=== PATIENT | male | born 1965 | race Caucasian/White ===

== ENCOUNTER 2021-06-19 14:44 | Inpatient (IN) ==
--- NOTE | 2021-06-19 18:01 | Emergency Department Note ---
History of Present Illness General Chief Complaint: Wound Stated Complaint: WOUND ON SECOND RIGHT TOE Time Seen by Provider: 06/19/21 18:00 Source: patient Mode of arrival: ambulatory Limitations: no limitations History of Present Illness Onset (ago): month(s) (2) Extremity Location: Right: foot Associated symptoms: + pain Treatments prior to arrival: + NSAIDS Patient has had a chronic wound over the right second phalanx for approximately 2 months and has been going to wound care getting treatments. The patient has noticed increasing redness swelling and drainage over the dorsal aspect of the right second digit. The patient has had worsening pain with redness and swelling. The patient denies any fevers or chills but is a diabetic. Home Medications Medication Instructions Recorded Confirmed Type apixaban 5 mg tablet (Eliquis) 5 mg PO BID 06/19/21 06/19/21 History atorvastatin 80 mg tablet 80 mg PO HS 06/19/21 06/19/21 History clindamycin HCl 150 mg capsule 450 mg PO TID 7 Days #63 cap 06/19/21 Rx ferrous gluconate 324 mg (37.5 mg 324 mg PO DAILY 06/19/21 06/19/21 History iron) tablet insulin aspart U-100 100 unit/mL 0 unit SUBCUT TIDM 06/19/21 06/19/21 History (3 mL) subcutaneous pen (Novolog Flexpen U-100 Insulin aspart) insulin glargine 100 unit/mL (3 18 unit SUBCUT PM 06/19/21 06/19/21 History mL) subcutaneous pen levofloxacin 750 mg tablet 750 mg PO DAILY 7 Days #7 tab 06/19/21 Rx metformin 1,000 mg tablet 1,000 mg PO BID 06/19/21 06/19/21 History sertraline 50 mg tablet 50 mg PO DAILY 06/19/21 06/19/21 History sitagliptin 100 mg tablet (Januvia) 100 mg PO DAILY 06/19/21 06/19/21 History tramadol 50 mg tablet 50 mg PO Q8H PRN #9 tab 06/19/21 Rx Allergies Allergy/AdvReac Type Severity Reaction Status Date / Time kiwi Allergy Intermediate EYES SWELL Verified 06/19/21 18:40 SHUT OYSTERS Allergy Intermediate EYES SWELL Uncoded 06/19/21 18:40 SHUT Past Med/Surg History Medical History Abnormal liver function (Unknown) Diabetes MDD (major depressive disorder) Surgical History No pertinent past surgical history Social History Smoking Status: Never smoker Preferred Language: Faroese Feels Safe at Home: Yes Review of Systems See HPI for pertinent positives & negatives. and A total of 10 systems reviewed and were otherwise negative Physical Exam Vital Signs Vital Signs - 24 hr 06/19/21 15:04 06/19/21 18:04 06/19/21 18:30 Temperature 36.6 C Temperature Source Temporal Artery Scan Pulse Rate 105 H 89 89 Pulse Rate from SpO2 Sensor 89 89 Pulse Rhythm Regular Pulse Strength Normal Respiratory Rate 16 19 24 Respiratory Effort / Characteristics Non-Labored Respiratory Depth Normal Respiratory Pattern Regular Blood Pressure 131/73 120/80 128/72 Blood Pressure Mean 92 93 90 Blood Pressure Position Sitting Pulse Oximetry 98 100 100 Oxygen Delivery Method Room Air Sepsis Recent Fever Within 48 Hours No Sepsis New/Unexplained Change in Mental Status N/A Sepsis Action Taken by Nursing No Action Required 06/19/21 19:03 06/19/21 19:30 06/19/21 20:00 Temperature Temperature Source Pulse Rate 93 H 92 H 89 Pulse Rate from SpO2 Sensor 90 92 H Pulse Rhythm Pulse Strength Respiratory Rate 19 18 21 Respiratory Effort / Characteristics Respiratory Depth Respiratory Pattern Blood Pressure 144/85 H 132/91 Blood Pressure Mean 104 104 Blood Pressure Position Pulse Oximetry 100 99 Oxygen Delivery Method Sepsis Recent Fever Within 48 Hours Sepsis New/Unexplained Change in Mental Status Sepsis Action Taken by Nursing 06/19/21 20:30 06/19/21 21:00 06/19/21 21:30 Temperature Temperature Source Pulse Rate 86 84 83 Pulse Rate from SpO2 Sensor 87 83 84 Pulse Rhythm Pulse Strength Respiratory Rate 13 13 12 Respiratory Effort / Characteristics Respiratory Depth Respiratory Pattern Blood Pressure 137/82 133/80 142/88 H Blood Pressure Mean 100 97 106 Blood Pressure Position Pulse Oximetry 99 99 100 Oxygen Delivery Method Sepsis Recent Fever Within 48 Hours Sepsis New/Unexplained Change in Mental Status Sepsis Action Taken by Nursing 06/19/21 22:00 06/19/21 22:30 06/19/21 23:00 Temperature Temperature Source Pulse Rate 83 82 81 Pulse Rate from SpO2 Sensor 84 Pulse Rhythm Pulse Strength Respiratory Rate 19 20 19 Respiratory Effort / Characteristics Respiratory Depth Respiratory Pattern Blood Pressure 140/87 126/71 135/82 Blood Pressure Mean 104 89 99 Blood Pressure Position Pulse Oximetry 100 Oxygen Delivery Method Sepsis Recent Fever Within 48 Hours Sepsis New/Unexplained Change in Mental Status Sepsis Action Taken by Nursing 06/19/21 23:30 Temperature Temperature Source Pulse Rate 80 Pulse Rate from SpO2 Sensor 79 Pulse Rhythm Pulse Strength Respiratory Rate Respiratory Effort / Characteristics Respiratory Depth Respiratory Pattern Blood Pressure 127/81 Blood Pressure Mean 96 Blood Pressure Position Pulse Oximetry 98 Oxygen Delivery Method Sepsis Recent Fever Within 48 Hours Sepsis New/Unexplained Change in Mental Status Sepsis Action Taken by Nursing GENERAL: Well appearing, well nourished, NAD, non-toxic. Wearing glasses and a mask. EYE EXAM: Normal conjunctiva. PERRL, no anisocoria and EOM's grossly intact w/o pain. NECK: Supple, no nuchal rigidity, no adenopathy, non-tender. No signs of meningismus. LUNGS: Clear to auscultation. Normal chest wall mechanics. HEART: NSR, no MRG. ABDOMEN: Abdomen soft, non-tender, normo-active bowel sounds, no masses, no re bound or guarding. BACK: No CVA TTP. SKIN: No rashes and no bruising. UPPER EXTREMITIES: Upper extremities are grossly normal. LOWER EXTREMITIES: Grossly normal, no edema. Negative Homans' sign bilaterally. 1/2 x 1 cm wound with scant drainage over the dorsum of the distal right second digit just proximal to the nailbed, mild swelling and erythema noted without any crepitus, mild TTP. Good DP pulse. NEURO EXAM: A&O x3, cranial nerves II-XII grossly intact, normal speech, moves all 4 extremities on command w/o issue. Course Course Cardiac monitoring: An order was placed for continuous cardiac monitoring. The monitor shows a rate of 95 with sinus rhythm. Administered Medications Discontinued Medications Clindamycin HCl (Clindamycin Hcl 150 Mg Cap) 450 mg PO NOW ONE Stop: 06/19/21 19:25 Last Admin: 06/19/21 19:29 Dose: 450 mg Documented by: [id number] Hydromorphone HCl (Hydromorphone Inj 0.5 Mg/0.5 Ml Syr) 0.5 mg IV NOW STA Stop: 06/19/21 22:55 Last Admin: 06/19/21 23:36 Dose: Not Given Documented by: [id number] Hydromorphone HCl (Hydromorphone Inj 0.5 Mg/0.5 Ml Syr) Confirm Administered Dose 0.5 mg .ROUTE .STK-MED ONE Stop: 06/19/21 23:09 Last Admin: 06/19/21 23:11 Dose: 0.5 mg Documented by: [id number] Sodium Chloride (Nss 1000ml) 1,000 mls @ 999 mls/hr IV .Q1H1M VIPUL Stop: 06/19/21 19:30 Last Infusion: 06/19/21 19:41 Dose: 999 mls/hr Documented by: [id number] Admin: 06/19/21 18:33 Dose: 999 mls/hr Documented by: [id number] Insulin Human Regular (Novolin-R Insulin Per Unit Charge) 5 units IV NOW STA Stop: 06/19/21 23:21 Last Admin: 06/19/21 23:33 Dose: 5 units Documented by: [id number] Cosigned by: [id number] Levofloxacin (Levofloxacin 750 Mg Tab) 750 mg PO ONE ONE Stop: 06/19/21 19:25 Last Admin: 06/19/21 19:30 Dose: 750 mg Documented by: [id number] Ondansetron HCl (Ondansetron Inj 2 Mg/Ml 2 Ml Vial) 4 mg IV NOW STA Stop: 06/19/21 18:19 Last Admin: 06/19/21 18:33 Dose: 4 mg Documented by: [id number] Tramadol HCl (Tramadol Hcl 50 Mg Tablet) 50 mg PO NOW STA Stop: 06/19/21 18:19 Last Admin: 06/19/21 18:32 Dose: 50 mg Documented by: [id number] Medical Decision Making Differential Diagnosis Cellulitis, abscess, MRSA infection, DVT, necrotizing fasciitis, dermatitis, drug eruption, allergic reaction, as well as other pathologies. Medical Records Attestation: I reviewed the patient's medical records. Home Medications Current Medication List: was personally reviewed by me Laboratory Data Attestation: I reviewed the patient's lab results. Result diagrams: 06/19/21 18:01 06/19/21 18:01 Lab Results 06/19/21 06/19/21 06/19/21 Range/Units 18: 18: 20:30 WBC 9.37 (4.8-10.8) K/uL RBC 4.46 L (4.7-6.1) M/uL Hgb 11.1 L (14.0-18.0) g/dL Hct 34.5 L (42-52) % MCV 77.4 L (80-100) fL MCH 24.9 L (25-34) pg MCHC 32.2 (32-36) g/dL RDW Std Deviation 41.5 (36.4-46.3) fL RDW Coeff of Donna 14.5 (11.5-14.5) % Plt Count 259 (130-400) K/uL MPV 10.8 H (7.4-10.4) fL Immature Gran % (Auto) 0.2 % Neut % (Auto) 82.1 % Lymph % (Auto) 9.7 % Otero % (Auto) 6.2 % Eos % (Auto) 1.4 % Baso % (Auto) 0.4 % Neut # (Auto) 7.69 H (1.4-6.5) K/uL Lymph # (Auto) 0.91 L (1.2-3.4) K/uL Otero # (Auto) 0.58 (0.11-0.59) K/uL Eos # (Auto) 0.13 (0-0.5) K/uL Baso # (Auto) 0.04 (0-0.2) K/uL Immature Gran # (Auto) 0.02 (0.00-0.02) K/uL Sodium 127 L (136-145) mmol/L Potassium 4.0 (3.5-5.1) mmol/L Chloride 101 (98-107) mmol/L Carbon Dioxide 26 (21-32) mmol/L Anion Gap 0 L (3-11) BUN 17 (7-18) mg/dl Creatinine 1.01 (0.6-1.4) mg/dl Est Cr Clr Drug Dosing 83.2 ml/min Est GFR ( Amer) 95.9 ml/min Est GFR (Non-Af Amer) 82.8 ml/min BUN/Creatinine Ratio 16.5 (10-20) Glucose 389 H* (70-99) mg/dl POC Glucose (70-99) mg/dl Calcium 8.7 (8.5-10.1) mg/dl Total Bilirubin 0.5 (0.2-1) mg/dl AST 20 (15-37) U/L ALT 24 (12-78) U/L Alkaline Phosphatase 89 (45-117) U/L Total Protein 7.9 (6.4-8.2) gm/dl Albumin 3.4 (3.4-5.0) gm/dl Globulin 4.5 H (2.5-4.0) gm/dl Albumin/Globulin Ratio 0.8 L (0.9-2) Beta-Hydroxybutyric Acd 0.88 (0.2-2.81) mg/dl COVID-19 Eval Order Covid19 at [facility] SARS-CoV-2 (PCR) (Negative) 06/19/21 06/19/21 Range/Units 20:30 23:33 WBC (4.8-10.8) K/uL RBC (4.7-6.1) M/uL Hgb (14.0-18.0) g/dL Hct (42-52) % MCV (80-100) fL MCH (25-34) pg MCHC (32-36) g/dL RDW Std Deviation (36.4-46.3) fL RDW Coeff of Donna (11.5-14.5) % Plt Count (130-400) K/uL MPV (7.4-10.4) fL Immature Gran % (Auto) % Neut % (Auto) % Lymph % (Auto) % Otero % (Auto) % Eos % (Auto) % Baso % (Auto) % Neut # (Auto) (1.4-6.5) K/uL Lymph # (Auto) (1.2-3.4) K/uL Otero # (Auto) (0.11-0.59) K/uL Eos # (Auto) (0-0.5) K/uL Baso # (Auto) (0-0.2) K/uL Immature Gran # (Auto) (0.00-0.02) K/uL Sodium (136-145) mmol/L Potassium (3.5-5.1) mmol/L Chloride (98-107) mmol/L Carbon Dioxide (21-32) mmol/L Anion Gap (3-11) BUN (7-18) mg/dl Creatinine (0.6-1.4) mg/dl Est Cr Clr Drug Dosing ml/min Est GFR ( Amer) ml/min Est GFR (Non-Af Amer) ml/min BUN/Creatinine Ratio (10-20) Glucose (70-99) mg/dl POC Glucose 304 H* (70-99) mg/dl Calcium (8.5-10.1) mg/dl Total Bilirubin (0.2-1) mg/dl AST (15-37) U/L ALT (12-78) U/L Alkaline Phosphatase (45-117) U/L Total Protein (6.4-8.2) gm/dl Albumin (3.4-5.0) gm/dl Globulin (2.5-4.0) gm/dl Albumin/Globulin Ratio (0.9-2) Beta-Hydroxybutyric Acd (0.2-2.81) mg/dl COVID-19 Eval Order SARS-CoV-2 (PCR) NEGATIVE (Negative) Imaging Data Radiologist's Impression: Foot X-Ray 06/19/21 18:28 XR foot RT 2V CLINICAL HISTORY: R 2nd toe wound on dorsum COMPARISON STUDY: None. FINDINGS: Near complete bony destruction of the right second toe middle phalanx. There is diffuse soft tissue swelling within the right second toe. The Lisfranc joint is intact. Vascular calcifications are noted. Tiny posterior calcaneal spur. The residual bony fragments of the right second toe middle phalanx demonstrate dorsal subluxation. IMPRESSION: Near complete bony destruction of the right second toe middle phalanx. This is consistent with an osteomyelitis. ACT 112: Negative or not required by law. Electronically signed by: Robinson White M.D. 06/19/2021 8:21 PM MDM Narrative Patient was seen due to concern for chronic wound over the dorsal aspect of the right second toe. The patient does have scant general drainage noted. The patient is otherwise well-appearing at the bedside. The patient's had a recent ultrasound completed which did show some self-described PVD but the patient has good pulse. Patient does have mild pain to the right second toe. Blood works obtained and the patient was treated symptomatically. Patient did have improvement in symptoms. Patient was initially given p.o. antibiotics given the patient's normal white count. The patient's x-ray did show concern for osteomyelitis. Given this I did speak to the patient about admission. The patient is amenable especially in light of the patient's hyperglycemia and chronic wound. The patient does not follow locally with wound care but follows in the outpatient setting in [place] as the patient has been he is sitting in [place]. I did speak with the on-call hospitalist Dr. Shankar and the patient was admitted to the medicine service. Impression & Plan Osteomyelitis, Diabetic foot, Hyponatremia, Hyperglycemia Discharge Plan Visit Data Chief Complaint: Wound Stated Complaint: WOUND ON SECOND RIGHT TOE ED Provider: Yan Kim Discharge Problem: Osteomyelitis, Diabetic foot, Hyponatremia, Hyperglycemia Patient Disposition: Admitted As Inpatient Condition: Good Discharge Instructions Krames/Other Patient Handouts: ED Cellulitis Activity Restrictions/Additional Instructions: Please return to the emergency department if you have worsening or recurrent symptoms not amenable to at-home treatment. Please call for a follow-up appointment with her primary care physician. Please take your medications as prescribed. If you have other concerns and/or complaints please feel free to also call your primary care physician's office or return the ED for further evaluation, management, and treatment. Take your medications as prescribed. If taking an antibiotic consider taking a probiotic and/or eating yogurt, but at the least, please take with food as it can cause upset stomach. If culture results are not available at discharge, if they are positive for concern of infection, you will be informed of the results as soon as they are available. You may take tylenol 650 mg every 6 hours as needed for pain/fever unless told by your physician to not take it or have liver problems. Please make sure that you apply a daily dressing. Change the dressing if it becomes wet or soiled. Please look out for signs of infection such as expanding redness or foul-smelling drainage. You may apply some antibiotic ointment with each daily dressing change. You may apply gentle soap and water but do not submerge the area. Please follow with wound care center on Saturday. You have been examined and treated today on an emergency basis only. This is not a substitute for, or an effort to provide, complete comprehensive medical care. It is impossible to recognize and treat all injuries or illnesses in a single emergency department visit. It is therefore important that you follow up closely with [facility], your PCP, and/or your specialist(s). Call as soon as possible for an appointment. Thank you for your time and consideration. I look forward to speaking with you again soon. Please don't hesitate to call us if you have any questions. Interventions: ED Discharge Assessment Last Done: 06/19/21 23:47 Forms Stand Alone Forms: My [facility], Virtual Emergency Department, Important Visit Information Prescriptions Prescriptions: New levofloxacin 750 mg tablet 750 mg PO DAILY 7 Days Qty: 7 RF: 0 clindamycin HCl 150 mg capsule 450 mg PO TID 7 Days Qty: 63 RF: 0 tramadol 50 mg tablet 50 mg PO Q8H PRN (Reason: pain) Qty: 9 RF: 0 No Action atorvastatin 80 mg Tablet 80 mg PO HS RF: 0 metformin 1,000 mg Tablet 1,000 mg PO BID RF: 0 sertraline 50 mg Tablet 50 mg PO DAILY RF: 0 insulin aspart U-100 [Novolog Flexpen U-100 Insulin] 100 unit/mL (3 mL) Insulin Pen 0 unit SUBCUT TIDM RF: 0 Januvia 100 mg Tablet 100 mg PO DAILY RF: 0 insulin glargine 100 unit/mL (3 mL) Insulin Pen 18 unit SUBCUT PM RF: 0 ferrous gluconate 324 mg (37.5 mg iron) Tablet 324 mg PO DAILY RF: 0 Eliquis 5 mg Tablet 5 mg PO BID RF: 0 Referrals Referrals: PCP,NO [Primary Care Provider] - Discharge Problem: Osteomyelitis Qualifiers: Osteomyelitis type: unspecified type Osteomyelitis location: foot Laterality: right Qualified Code(s): M86.9 - Osteomyelitis, unspecified
[2021-06-19] MEDS ORDERED: traMADol HCL 50 MG TABLET PO STA (18:18)
[2021-06-19] MEDS ORDERED: ONDANSETRON INJ 2 MG/ML 2 ML VIAL IV STA (18:18)
[2021-06-19 18:29] LABS: Basophils # (auto) 0.04 K/uL (0-0.2); Basophils % (auto) 0.4 %; Eosinophils # (auto) 0.13 K/uL (0-0.5); Eosinophils % (auto) 1.4 %; Hematocrit (blood only) 34.5 % (42-52); Hemoglobin 11.1 g/dL (14.0-18.0); Immature Granulocytes # (auto) 0.02 K/uL (0.00-0.02); Immature Granulocytes % (auto) 0.2 %; Lymphocytes # (auto) 0.91 K/uL (1.2-3.4); Lymphocytes % (auto) 9.7 %; Mean Corpuscular Hemoglobin 24.9 pg (25-34); Mean Corpuscular Hgb Conc 32.2 g/dL (32-36); Mean Corpuscular Volume 77.4 fL (80-100); Mean Platelet Volume 10.8 fL (7.4-10.4); Monocytes # (auto) 0.58 K/uL (0.11-0.59); Monocytes % (auto) 6.2 %; Neutrophils # (auto) 7.69 K/uL (1.4-6.5); Neutrophils % (auto) 82.1 %; Platelet Count 259 K/uL (130-400); RDW Coefficient of Variation 14.5 % (11.5-14.5); RDW Standard Deviation 41.5 fL (36.4-46.3); Red Blood Count 4.46 M/uL (4.7-6.1); White Blood Count 9.37 K/uL (4.8-10.8)
[2021-06-19] MEDS ORDERED: SODIUM CHLORIDE 0.9% 1000ML 1,000 ML IV SCH (18:30)
[2021-06-19 18:57] LABS: Albumin Globulin Ratio 0.8 (0.9-2); Albumin Level 3.4 gm/dl (3.4-5.0); BUN Creatinine Ratio 16.5 (10-20); Bilirubin,Total 0.5 mg/dl (0.2-1); Calcium 8.7 mg/dl (8.5-10.1); Creatinine Clr Calc Pharmacy 83.2 ml/min; Est GFR (African American) 95.9 ml/min; Est GFR (Non-African American) 82.8 ml/min; Globulin 4.5 gm/dl (2.5-4.0); Total Protein 7.9 gm/dl (6.4-8.2)
[2021-06-19 19:17] LABS: Beta-Hydroxybutyrate 0.88 mg/dl (0.2-2.81)
[2021-06-19] MEDS ORDERED: levoFLOXacin 750 MG TAB PO ONE (19:24)
[2021-06-19] MEDS ORDERED: CLINDAMYCIN HCL 150 MG CAP PO ONE (19:24)
--- NOTE | 2021-06-19 20:22 | XRay Report ---
XR foot RT 2V CLINICAL HISTORY: R 2nd toe wound on dorsum COMPARISON STUDY: None. FINDINGS: Near complete bony destruction of the right second toe middle phalanx. There is diffuse sof t tissue swelling within the right second toe. The Lisfranc joint is intact. Vascular calcifications are noted. Tiny posterior calcaneal spur. The residual bony fragments of the right second toe middle phalanx demonstrate dorsal subluxation. IMPRESSION: Near complete bony destruction of the right second toe middle phalanx. This is consisten t with an osteomyelitis. ACT 112: Negative or not required by law. Electronically signed by: Robinson White M.D. 06/19/2021 8:21 PM
[2021-06-19] MEDS ORDERED: HYDROmorphone INJ 0.5 MG/0.5 ML SYR IV STA (22:54)
[2021-06-19] MEDS ORDERED: HYDROmorphone INJ 0.5 MG/0.5 ML SYR ONE (23:08)
[2021-06-19] MEDS ORDERED: NovoLIN-R INSULIN PER UNIT CHARGE IV STA (23:20)
[2021-06-20] MEDS ORDERED: POLYETHYLENE (MIRALAX) 17 GM PACK PO PRN (00:26)
[2021-06-20] MEDS ORDERED: ONDANSETRON INJ 2 MG/ML 2 ML VIAL IV PRN (00:26)
[2021-06-20] MEDS ORDERED: PIPERACILL/TAZOBAC CONSULT ACTIVE PRN (00:26)
[2021-06-20] MEDS ORDERED: INSULIN ASPART 100 UNITS/ML 3 ML PEN SC STA (00:41)
[2021-06-20] MEDS ORDERED: INSULIN GLARGINE SOLOSTAR 100 UNITS/ML 3 ML PEN SC STA (00:41)
[2021-06-20] MEDS ORDERED: GLUCOSE 10 TABS/TUBE PO PRN (02:00)
[2021-06-20] MEDS ORDERED: DEXTROSE 50% 50 ML SYRINGE IV PRN (02:00)
[2021-06-20] MEDS ORDERED: GLUCOSE 40% GEL 15 GM TUBE PO PRN (02:00)
[2021-06-20] MEDS ORDERED: CARBOHYDRATES FOR HYPOGLYCEMIA PO PRN (02:00)
[2021-06-20] MEDS ORDERED: GLUCAGON FOR INJ 1 MG VIAL IM PRN (02:00)
[2021-06-20] MEDS: ACETAMINOPHEN 325 MG TAB PO PRN ×2 (02:23→20:21)
[2021-06-20] MEDS: oxyCODONE HCL IR 5 MG TAB (IMMEDIATE RELEASE) PO PRN ×5 (02:23→20:22)
[2021-06-20] MEDS: PIPERACILLIN/TAZOBACTAM 4.5 GM in DEXTROSE 5% 100 ML IV SCH ×3 (02:38→18:16)
--- NOTE | 2021-06-20 03:06 | History and Physical Report ---
DATE OF ADMISSION: 06/19/2021. CHIEF COMPLAINT: Right second toe infection. HISTORY OF PRESENT ILLNESS: This is a 56-year-old male with past medical history significant for type 2 diabetes, history of CABG, history of clot in the spleen, hyperlipidemia, depression, who presents with right 2nd toe infection. The patient is from [facility], he is visiting [place]. He states he will go back to [place] around 06/28/2021. Before coming here, about one and a half weeks ago in [place], he saw wound care and has also a followup appointment. He got injured at work place in April, but in the last 2 days the pain is severe and it has been shooting in his legs, that is the reason he came here, no fevers but having chills. The patient says he had arterial ultrasound done in [place] and they said there is some blockage and the blood supply is not that great. Currently, resting comfortably and hemodynamically stable. Denies any headache. No dizziness, no blurred visions, no earache, no runny nose, no sore throat, no cough, no difficulty swallowing. Appetite is okay. No chest pain, no shortness of breath, no nausea, no abdominal pain. Normal bowel and bladder movements. No blood in the stools or black stools. No hematuria, no burning micturition. Has a wound seen in the second right toe. Says he is ambulating okay. ALLERGIES: KIWI, OYSTERS. PAST MEDICAL HISTORY: As mentioned above. PAST SURGICAL HISTORY: CABG and he has had right ankle surgery from injury. MEDICATIONS: The patient is on Eliquis 5 mg p.o. b.i.d., atorvastatin 80 mg p.o. at bedtime, ferrous sulfate 325 mg p.o. daily, insulin NovoLog FlexPen t.i.d., Insulin glargine 18 units p.m., metformin 1000 mg p.o. b.i.d., sertraline 50 mg p.o. daily, Januvia 100 mg p.o. daily. FAMILY HISTORY: Significant for father had heart disease and CABG and diabetes. SOCIAL HISTORY: No smoking history. Quit alcohol several years ago. He used to do recreational drugs when he was in college, but not recently. REVIEW OF SYSTEMS: As per HPI. Rest of the review of systems is negative. PHYSICAL EXAMINATION: GENERAL: The patient is of moderate build, not in acute distress. VITAL SIGNS: Temperature 36.6, pulse 82, respiratory rate 20, blood pressure 126/71, oxygen 100% on room air. HEENT: Pupils equal, round and reactive to light. Oral mucosa moist. NECK: No JVD, no neck masses. HEART: S1 and S2 heard. Regular rate and rhythm. No murmur, no gallop. RESPIRATORY SYSTEM: Normal AP diameter. No accessory muscle use. No wheezing, no crackles. ABDOMEN: Soft, bowel sounds present, nontender, no distention. CENTRAL NERVOUS SYSTEM: Cranial nerves II-XII grossly intact, nonfocal. EXTREMITIES: No edema. Open wound seen on the right second toe, which is swollen. LABORATORY DATA: WBC 9, hemoglobin 11.1, hematocrit 34.5, platelets 259. Sodium 127, potassium 4, chloride 101, bicarbonate 26, BUN 17, creatinine 1, serum glucose 389, calcium 8.7, total bilirubin 0.5, AST 20, ALT 24, alkaline phosphatase 89. SARS-CoV-2 PCR negative. Foot x-ray of the right foot, near complete bony destruction of the right 2nd toe middle phalanx. This is consistent with an osteomyelitis. EKG: Normal sinus rhythm at a rate of 80, no significant change was found. ASSESSMENT AND PLAN: This is a 56-year-old male who presents with right foot infection. 1. Right foot second toe infection: Diabetic foot infection, osteomyelitis on x-ray. We will start him on daptomycin and Zosyn. Pain control. We will keep n.p.o. after midnight and consult orthopedics in a.m. 2. Diabetes: Will continue to hold his home insulin and metformin and Januvia. Will place him on Lantus 10 units and insulin sliding scale, and closely monitor the blood sugars. The patient is currently n.p.o. 3. Hyponatremia: Possibly from elevated sugars. We will follow the repeat labs. The patient is also getting gentle fluids. 4. History of coronary artery disease: Status post coronary artery bypass grafting. On Eliquis, statin. 5. Hyperlipidemia: On statin. 6. Depression: On sertraline. 7. Deep venous thrombosis prophylaxis: Sequential compression devices for now. On Eliquis. DISPOSITION: Closely monitor in the medical floor. Expect to discharge home and follow with family doctor. Job ID: [id number] [facility]
[2021-06-20] MEDS: DAPTOmycin 425 MG in SYRINGE 0 ML IV SCH (05:18)
[2021-06-20] MEDS: INSULIN ASPART 100 UNITS/ML 3 ML PEN SC SCH ×3 (06:17→19:17)
[2021-06-20 07:05] LABS: Estimated Average Glucose 235 mg/dl; Hemoglobin A1C 9.8 % (4.5-5.6)
[2021-06-20 07:30] LABS: Basophils # (auto) 0.03 K/uL (0-0.2); Basophils % (auto) 0.7 %; Eosinophils # (auto) 0.21 K/uL (0-0.5); Eosinophils % (auto) 5.2 %; Hematocrit (blood only) 32.6 % (42-52); Hemoglobin 10.3 g/dL (14.0-18.0); Immature Granulocytes # (auto) 0.01 K/uL (0.00-0.02); Immature Granulocytes % (auto) 0.2 %; Lymphocytes # (auto) 0.96 K/uL (1.2-3.4); Lymphocytes % (auto) 23.8 %; Mean Corpuscular Hemoglobin 24.5 pg (25-34); Mean Corpuscular Hgb Conc 31.6 g/dL (32-36); Mean Corpuscular Volume 77.4 fL (80-100); Monocytes # (auto) 0.61 K/uL (0.11-0.59); Monocytes % (auto) 15.1 %; Neutrophils # (auto) 2.21 K/uL (1.4-6.5); Platelet Count 192 K/uL (130-400); RDW Coefficient of Variation 14.7 % (11.5-14.5); Red Blood Count 4.21 M/uL (4.7-6.1); White Blood Count 4.03 K/uL (4.8-10.8)
[2021-06-20 07:39] LABS: BUN Creatinine Ratio 21.2 (10-20); Calcium 8.4 mg/dl (8.5-10.1); Creatinine Clr Calc Pharmacy 121.6 ml/min; Est GFR (African American) 123.7 ml/min; Est GFR (Non-African American) 106.8 ml/min; Magnesium 1.6 mg/dl (1.8-2.4)
[2021-06-20] MEDS: FERROUS GLUCONATE 324 MG TAB PO SCH (10:49)
[2021-06-20] MEDS: SERTRALINE HCL 50 MG TABLET PO SCH (10:49)
--- NOTE | 2021-06-20 11:14 | Hospitalist Progress Note ---
Date of Service June 20, 2021 Assessment & Plan (1) Diabetic foot: (2) Osteomyelitis: Plan: Diabetic foot ulcer Right toe osteomyelitis I discussed XR findings and need for amputation He is considering having that done at [place] since he is just visiting He will like to discuss that with the surgeon first. Continue IV antibiotics (3) Hyperglycemia: Plan: DM on insulin A1c 9.8 Hold metformin Continue insulin protocol for optimal glycemic control Plan: H/O CAD S/p CABG On statin Patient informed to hold AM eliquis until patient discussed with Surgeon If proceeding with surgery during this admission, will hold eliquis. 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 Patient reports pain in the right foot shooting into the lower leg. Review of Systems Constitutional: no fever, no chills and no body aches Eyes: no problem reported Ear, Nose, Mouth, Throat: no problem reported Respiratory: no cough and no dyspnea Cardiovascular: no chest pain, no dyspnea and no palpitations Gastrointestinal: no abdominal pain, no nausea, no vomiting and no diarrhea/loose stools Genitourinary: no dysuria, no difficulty urinating or no urinary frequency Musculoskeletal: Right foot pain Neurologic: no dizziness and no headache(s) Psychiatric: no depression and no anxiety Physical Exam Constitutional: + well hydrated; no acute distress Eyes: PERRL, conjunctivae normal, anicteric sclerae ENMT: external ear and nose normal, oropharynx normal Respiratory: normal respiratory effort, lungs clear to auscultation Cardiovascular: Rate/Rhythm: regular rate and regular rhythm S1 S2 Gastrointestinal (Abdomen): normal bowel sounds, soft, nontender, no hepatosplenomegaly Musculoskeletal: Right 2nd toe wound. Right foot tenderness Neurologic: PERRL, EOMI, accommodation nl, no face palsy, no dysarthria Psychiatric: A+Ox3, euthymic affect Genitourinary: no CVA tenderness Results & Data Results & Data ([facility]) Vital Signs (Past 12 Hours) Vital Signs Temp Pulse Pulse Resp BP BP Pulse Ox 06/20/21 07:45 36.3 C L 78 17 130/84 100 06/20/21 00:25 36.5 C 82 16 125/78 99 06/19/21 23:30 80 127/81 98 Laboratory Results Abnormal lab results 06/19/21 06/19/21 06/19/21 Range/Units 18:01 18:01 23:33 WBC (4.8-10.8) K/uL RBC 4.46 L (4.7-6.1) M/uL Hgb 11.1 L (14.0-18.0) g/dL Hct 34.5 L (42-52) % MCV 77.4 L (80-100) fL MCH 24.9 L (25-34) pg MCHC (32-36) g/dL RDW Coeff of Donna (11.5-14.5) % MPV 10.8 H (7.4-10.4) fL Neut # (Auto) 7.69 H (1.4-6.5) K/uL Lymph # (Auto) 0.91 L (1.2-3.4) K/uL [place] # (Auto) (0.11-0.59) K/uL Sodium 127 L (136-145) mmol/L Anion Gap 0 L (3-11) BUN/Creatinine Ratio (10-20) Glucose 389 H* (70-99) mg/dl POC Glucose 304 H* (70-99) mg/dl Hemoglobin A1c (4.5-5.6) % Calcium (8.5-10.1) mg/dl Magnesium (1.8-2.4) mg/dl Globulin 4.5 H (2.5-4.0) gm/dl Albumin/Globulin Ratio 0.8 L (0.9-2) 06/20/21 06/20/21 06/20/21 Range/Units 00:22 00:23 06:06 WBC (4.8-10.8) K/uL RBC (4.7-6.1) M/uL Hgb (14.0-18.0) g/dL Hct (42-52) % MCV (80-100) fL MCH (25-34) pg MCHC (32-36) g/dL RDW Coeff of Donna (11.5-14.5) % MPV (7.4-10.4) fL Neut # (Auto) (1.4-6.5) K/uL Lymph # (Auto) (1.2-3.4) K/uL [place] # (Auto) (0.11-0.59) K/uL Sodium (136-145) mmol/L Anion Gap (3-11) BUN/Creatinine Ratio (10-20) Glucose (70-99) mg/dl POC Glucose 313 H* 344 H* 102 H (70-99) mg/dl Hemoglobin A1c (4.5-5.6) % Calcium (8.5-10.1) mg/dl Magnesium (1.8-2.4) mg/dl Globulin (2.5-4.0) gm/dl Albumin/Globulin Ratio (0.9-2) 06/20/21 06/20/21 06/20/21 Range/Units 06:29 06:29 06:29 WBC 4.03 L D (4.8-10.8) K/uL RBC 4.21 L (4.7-6.1) M/uL Hgb 10.3 L (14.0-18.0) g/dL Hct 32.6 L (42-52) % MCV 77.4 L (80-100) fL MCH 24.5 L (25-34) pg MCHC 31.6 L (32-36) g/dL RDW Coeff of Donna 14.7 H (11.5-14.5) % MPV (7.4-10.4) fL Neut # (Auto) (1.4-6.5) K/uL Lymph # (Auto) 0.96 L (1.2-3.4) K/uL [place] # (Auto) 0.61 H (0.11-0.59) K/uL Sodium (136-145) mmol/L Anion Gap 0 L (3-11) BUN/Creatinine Ratio 21.2 H (10-20) Glucose 100 H (70-99) mg/dl POC Glucose (70-99) mg/dl Hemoglobin A1c 9.8 H (4.5-5.6) % Calcium 8.4 L (8.5-10.1) mg/dl Magnesium 1.6 L (1.8-2.4) mg/dl Globulin (2.5-4.0) gm/dl Albumin/Globulin Ratio (0.9-2) 06/20/21 Range/Units 12:05 WBC (4.8-10.8) K/uL RBC (4.7-6.1) M/uL Hgb (14.0-18.0) g/dL Hct (42-52) % MCV (80-100) fL MCH (25-34) pg MCHC (32-36) g/dL RDW Coeff of Donna (11.5-14.5) % MPV (7.4-10.4) fL Neut # (Auto) (1.4-6.5) K/uL Lymph # (Auto) (1.2-3.4) K/uL [place] # (Auto) (0.11-0.59) K/uL Sodium (136-145) mmol/L Anion Gap (3-11) BUN/Creatinine Ratio (10-20) Glucose (70-99) mg/dl POC Glucose 181 H (70-99) mg/dl Hemoglobin A1c (4.5-5.6) % Calcium (8.5-10.1) mg/dl Magnesium (1.8-2.4) mg/dl Globulin (2.5-4.0) gm/dl Albumin/Globulin Ratio (0.9-2) (1) Osteomyelitis Laterality: right Osteomyelitis location: foot Osteomyelitis type: unspecified type Qualified Code(s): M86.9 - Osteomyelitis, unspecified
--- NOTE | 2021-06-20 13:11 | Orthopedic Consultation ---
Date of Consultation June 20, 2021 Assessment & Plan (1) Osteomyelitis: Right second toe Osteomyelitis: Patient seen by myself. Discussed xray findings and diagnosis. Aware Dr Kelly is in the OR. Will discuss case with him. Patient aware 2nd toe amputation may be necessary. He is not sure if he wants to have performed here or in [place]. He was hoping to go home this Saturday. Patient is afrebile. Will continue with IV ABX, continue with holding elequis and NPO for now until Dr Kelly sees patient and discusses surgical options for today or at a later time. Wound redressed. WBAT through heel. Present on Admission?: Yes History of Present Illness Reason for Consultation: Right 2nd toe diabetic ulcer/osteomyelitis Requesting Physician: Dr Kelly Attending Physician: Ivania Marshall MD History of Present Illness 56-year-old male with past medical history for type 2 diabetes, CABG, clot in the spleen, hyperlipidemia, depression, presented to ED with worsening right 2nd toe pain, swelling, and drainage. The patient is from [facility]. He is visiting [place]. He is hoping to go back on 06/28/2021. Before coming here, he has been treated with wound clinic for right 2nd toe diabetic ulcer. Initially was treated with a round of PO antibiotics. Last visit was this past Saturday prior to him coming to [place] on Saturday. Patient said since he has been here, the pain, swelling, and drainage of wound has gotten worse, leading him to the ED. Patient says wound clinic discussed possible refer for amputation previously but nothing was formally set up. The patient says he had arterial ultrasound done in [place] and they said there is some blockage and the blood supply is not that great. He denies fever, chills, sweats. He is on IV antibiotics. He has been NPO today and elequis is on hold pending our consultation and recommendations. Currently, resting comfortably and hemodynamically stable. Xrays of right second toe show near complete bony destruction of the right second toe middle phalanx. This is consistent with an osteomyelitis. Allergies Allergy/AdvReac Type Severity Reaction Status Date / Time kiwi Allergy Intermediate EYES SWELL Verified 06/19/21 18:40 SHUT OYSTERS Allergy Intermediate EYES SWELL Uncoded 06/19/21 18:40 SHUT Home Medications Medication Instructions Recorded Confirmed Type apixaban 5 mg tablet (Eliquis) 5 mg PO BID 06/19/21 06/19/21 History atorvastatin 80 mg tablet 80 mg PO HS 06/19/21 06/19/21 History clindamycin HCl 150 mg capsule 450 mg PO TID 7 Days #63 cap 06/19/21 Rx ferrous gluconate 324 mg (37.5 mg 324 mg PO DAILY 06/19/21 06/19/21 History iron) tablet insulin aspart U-100 100 unit/mL 0 unit SUBCUT TIDM 06/19/21 06/19/21 History (3 mL) subcutaneous pen (Novolog Flexpen U-100 Insulin aspart) insulin glargine 100 unit/mL (3 18 unit SUBCUT PM 06/19/21 06/19/21 History mL) subcutaneous pen levofloxacin 750 mg tablet 750 mg PO DAILY 7 Days #7 tab 06/19/21 Rx metformin 1,000 mg tablet 1,000 mg PO BID 06/19/21 06/19/21 History sertraline 50 mg tablet 50 mg PO DAILY 06/19/21 06/19/21 History sitagliptin 100 mg tablet (Januvia) 100 mg PO DAILY 06/19/21 06/19/21 History tramadol 50 mg tablet 50 mg PO Q8H PRN #9 tab 06/19/21 Rx Patient History Medical History Abnormal liver function (Unknown) Diabetes MDD (major depressive disorder) Surgical History No pertinent past surgical history Social History Smoking Status: Never smoker Hx Alcohol Use: No Hx Substance Use: No Preferred Language: Bulgarian Communication Ability: Effective Associate Justice Required: No Beliefs That Will Affect Care: None Current Living Situation: Alone Feels Safe at Home: Yes Safety Concerns: Feels Safe At This Time Assistive Devices: Glasses Review of Systems Review of Systems: Positive for above HPI, otherwise negative Physical Exam Physical Exam: Right lower extremity: open wound to dorsum of 2nd toe proximal to nail bed with scant drainage noted on dressings. Moderate erythema and swelling noted. Discomfort with AROM of toe. Tender to palpation. Decreased sensation to light touch to 2nd toe, otherwise sensation is intact. Good DP and PT pulse, brisk capillary refill noted. No issues with AROM of toes or ankle. Mild swelling to foot. No red streaking. Calve soft. Neg homans. Results & Data ([facility]) Vital Signs (Past 12 Hours) Vital Signs Temp Pulse Resp BP Pulse Ox 06/20/21 07:45 36.3 C L 78 17 130/84 100 Laboratory Results 06/20/21 06/20/21 06/20/21 Range/Units 12:05 06:29 06:29 WBC (4.8-10.8) K/uL RBC (4.7-6.1) M/uL Hgb (14.0-18.0) g/dL Hct (42-52) % MCV (80-100) fL MCH (25-34) pg MCHC (32-36) g/dL RDW Std Deviation (36.4-46.3) fL RDW Coeff of Donna (11.5-14.5) % Plt Count (130-400) K/uL MPV (7.4-10.4) fL Immature Gran % (Auto) % Neut % (Auto) % Lymph % (Auto) % [place] % (Auto) % Eos % (Auto) % Baso % (Auto) % Neut # (Auto) (1.4-6.5) K/uL Lymph # (Auto) (1.2-3.4) K/uL [place] # (Auto) (0.11-0.59) K/uL Eos # (Auto) (0-0.5) K/uL Baso # (Auto) (0-0.2) K/uL Immature Gran # (Auto) (0.00-0.02) K/uL Sodium (136-145) mmol/L Potassium (3.5-5.1) mmol/L Chloride (98-107) mmol/L Carbon Dioxide (21-32) mmol/L Anion Gap (3-11) BUN (7-18) mg/dl Creatinine (0.6-1.4) mg/dl Est Cr Clr Drug Dosing ml/min Est GFR ( Amer) ml/min Est GFR (Non-Af Amer) ml/min BUN/Creatinine Ratio (10-20) Glucose (70-99) mg/dl POC Glucose 181 H (70-99) mg/dl Estimat Average Glucose 235 mg/dl Hemoglobin A1c 9.8 H (4.5-5.6) % Calcium (8.5-10.1) mg/dl Magnesium (1.8-2.4) mg/dl Total Bilirubin (0.2-1) mg/dl AST (15-37) U/L ALT (12-78) U/L Alkaline Phosphatase (45-117) U/L Total Protein (6.4-8.2) gm/dl Albumin (3.4-5.0) gm/dl Globulin (2.5-4.0) gm/dl Albumin/Globulin Ratio (0.9-2) Beta-Hydroxybutyric Acd (0.2-2.81) mg/dl COVID-19 Eval Order SARS-CoV-2 (PCR) (Negative) Hepatitis C Ab Screen Neg (Neg) 06/20/21 06/20/21 06/20/21 Range/Units 06:29 06:29 06:06 WBC 4.03 L D (4.8-10.8) K/uL RBC 4.21 L (4.7-6.1) M/uL Hgb 10.3 L (14.0-18.0) g/dL Hct 32.6 L (42-52) % MCV 77.4 L (80-100) fL MCH 24.5 L (25-34) pg MCHC 31.6 L (32-36) g/dL RDW Std Deviation 42.0 (36.4-46.3) fL RDW Coeff of Donna 14.7 H (11.5-14.5) % Plt Count 192 (130-400) K/uL MPV 10.0 (7.4-10.4) fL Immature Gran % (Auto) 0.2 % Neut % (Auto) 55.0 % Lymph % (Auto) 23.8 % [place] % (Auto) 15.1 % Eos % (Auto) 5.2 % Baso % (Auto) 0.7 % Neut # (Auto) 2.21 (1.4-6.5) K/uL Lymph # (Auto) 0.96 L (1.2-3.4) K/uL [place] # (Auto) 0.61 H (0.11-0.59) K/uL Eos # (Auto) 0.21 (0-0.5) K/uL Baso # (Auto) 0.03 (0-0.2) K/uL Immature Gran # (Auto) 0.01 (0.00-0.02) K/uL Sodium 137 D (136-145) mmol/L Potassium 4.0 (3.5-5.1) mmol/L Chloride 107 (98-107) mmol/L Carbon Dioxide 30 (21-32) mmol/L Anion Gap 0 L (3-11) BUN 15 (7-18) mg/dl Creatinine 0.68 D (0.6-1.4) mg/dl Est Cr Clr Drug Dosing 121.6 ml/min Est GFR ( Amer) 123.7 ml/min Est GFR (Non-Af Amer) 106.8 ml/min BUN/Creatinine Ratio 21.2 H (10-20) Glucose 100 H (70-99) mg/dl POC Glucose 102 H (70-99) mg/dl Estimat Average Glucose mg/dl Hemoglobin A1c (4.5-5.6) % Calcium 8.4 L (8.5-10.1) mg/dl Magnesium 1.6 L (1.8-2.4) mg/dl Total Bilirubin (0.2-1) mg/dl AST (15-37) U/L ALT (12-78) U/L Alkaline Phosphatase (45-117) U/L Total Protein (6.4-8.2) gm/dl Albumin (3.4-5.0) gm/dl Globulin (2.5-4.0) gm/dl Albumin/Globulin Ratio (0.9-2) Beta-Hydroxybutyric Acd (0.2-2.81) mg/dl COVID-19 Eval Order SARS-CoV-2 (PCR) (Negative) Hepatitis C Ab Screen (Neg) 06/20/21 06/20/21 06/19/21 Range/Units 00:23 00:22 23:33 WBC (4.8-10.8) K/uL RBC (4.7-6.1) M/uL Hgb (14.0-18.0) g/dL Hct (42-52) % MCV (80-100) fL MCH (25-34) pg MCHC (32-36) g/dL RDW Std Deviation (36.4-46.3) fL RDW Coeff of Donna (11.5-14.5) % Plt Count (130-400) K/uL MPV (7.4-10.4) fL Immature Gran % (Auto) % Neut % (Auto) % Lymph % (Auto) % [place] % (Auto) % Eos % (Auto) % Baso % (Auto) % Neut # (Auto) (1.4-6.5) K/uL Lymph # (Auto) (1.2-3.4) K/uL [place] # (Auto) (0.11-0.59) K/uL Eos # (Auto) (0-0.5) K/uL Baso # (Auto) (0-0.2) K/uL Immature Gran # (Auto) (0.00-0.02) K/uL Sodium (136-145) mmol/L Potassium (3.5-5.1) mmol/L Chloride (98-107) mmol/L Carbon Dioxide (21-32) mmol/L Anion Gap (3-11) BUN (7-18) mg/dl Creatinine (0.6-1.4) mg/dl Est Cr Clr Drug Dosing ml/min Est GFR ( Amer) ml/min Est GFR (Non-Af Amer) ml/min BUN/Creatinine Ratio (10-20) Glucose (70-99) mg/dl POC Glucose 344 H* 313 H* 304 H* (70-99) mg/dl Estimat Average Glucose mg/dl Hemoglobin A1c (4.5-5.6) % Calcium (8.5-10.1) mg/dl Magnesium (1.8-2.4) mg/dl Total Bilirubin (0.2-1) mg/dl AST (15-37) U/L ALT (12-78) U/L Alkaline Phosphatase (45-117) U/L Total Protein (6.4-8.2) gm/dl Albumin (3.4-5.0) gm/dl Globulin (2.5-4.0) gm/dl Albumin/Globulin Ratio (0.9-2) Beta-Hydroxybutyric Acd (0.2-2.81) mg/dl COVID-19 Eval Order SARS-CoV-2 (PCR) (Negative) Hepatitis C Ab Screen (Neg) 06/19/21 06/19/21 06/19/21 Range/Units 20:30 20:30 18:01 WBC (4.8-10.8) K/uL RBC (4.7-6.1) M/uL Hgb (14.0-18.0) g/dL Hct (42-52) % MCV (80-100) fL MCH (25-34) pg MCHC (32-36) g/dL RDW Std Deviation (36.4-46.3) fL RDW Coeff of Donna (11.5-14.5) % Plt Count (130-400) K/uL MPV (7.4-10.4) fL Immature Gran % (Auto) % Neut % (Auto) % Lymph % (Auto) % [place] % (Auto) % Eos % (Auto) % Baso % (Auto) % Neut # (Auto) (1.4-6.5) K/uL Lymph # (Auto) (1.2-3.4) K/uL [place] # (Auto) (0.11-0.59) K/uL Eos # (Auto) (0-0.5) K/uL Baso # (Auto) (0-0.2) K/uL Immature Gran # (Auto) (0.00-0.02) K/uL Sodium 127 L (136-145) mmol/L Potassium 4.0 (3.5-5.1) mmol/L Chloride 101 (98-107) mmol/L Carbon Dioxide 26 (21-32) mmol/L Anion Gap 0 L (3-11) BUN 17 (7-18) mg/dl Creatinine 1.01 (0.6-1.4) mg/dl Est Cr Clr Drug Dosing 83.2 ml/min Est GFR ( Amer) 95.9 ml/min Est GFR (Non-Af Amer) 82.8 ml/min BUN/Creatinine Ratio 16.5 (10-20) Glucose 389 H* (70-99) mg/dl POC Glucose (70-99) mg/dl Estimat Average Glucose mg/dl Hemoglobin A1c (4.5-5.6) % Calcium 8.7 (8.5-10.1) mg/dl Magnesium (1.8-2.4) mg/dl Total Bilirubin 0.5 (0.2-1) mg/dl AST 20 (15-37) U/L ALT 24 (12-78) U/L Alkaline Phosphatase 89 (45-117) U/L Total Protein 7.9 (6.4-8.2) gm/dl Albumin 3.4 (3.4-5.0) gm/dl Globulin 4.5 H (2.5-4.0) gm/dl Albumin/Globulin Ratio 0.8 L (0.9-2) Beta-Hydroxybutyric Acd 0.88 (0.2-2.81) mg/dl COVID-19 Eval Order Covid19 at [facility] SARS-CoV-2 (PCR) NEGATIVE (Negative) Hepatitis C Ab Screen (Neg) 06/19/21 Range/Units 18:01 WBC 9.37 (4.8-10.8) K/uL RBC 4.46 L (4.7-6.1) M/uL Hgb 11.1 L (14.0-18.0) g/dL Hct 34.5 L (42-52) % MCV 77.4 L (80-100) fL MCH 24.9 L (25-34) pg MCHC 32.2 (32-36) g/dL RDW Std Deviation 41.5 (36.4-46.3) fL RDW Coeff of Donna 14.5 (11.5-14.5) % Plt Count 259 (130-400) K/uL MPV 10.8 H (7.4-10.4) fL Immature Gran % (Auto) 0.2 % Neut % (Auto) 82.1 % Lymph % (Auto) 9.7 % [place] % (Auto) 6.2 % Eos % (Auto) 1.4 % Baso % (Auto) 0.4 % Neut # (Auto) 7.69 H (1.4-6.5) K/uL Lymph # (Auto) 0.91 L (1.2-3.4) K/uL [place] # (Auto) 0.58 (0.11-0.59) K/uL Eos # (Auto) 0.13 (0-0.5) K/uL Baso # (Auto) 0.04 (0-0.2) K/uL Immature Gran # (Auto) 0.02 (0.00-0.02) K/uL Sodium (136-145) mmol/L Potassium (3.5-5.1) mmol/L Chloride (98-107) mmol/L Carbon Dioxide (21-32) mmol/L Anion Gap (3-11) BUN (7-18) mg/dl Creatinine (0.6-1.4) mg/dl Est Cr Clr Drug Dosing ml/min Est GFR ( Amer) ml/min Est GFR (Non-Af Amer) ml/min BUN/Creatinine Ratio (10-20) Glucose (70-99) mg/dl POC Glucose (70-99) mg/dl Estimat Average Glucose mg/dl Hemoglobin A1c (4.5-5.6) % Calcium (8.5-10.1) mg/dl Magnesium (1.8-2.4) mg/dl Total Bilirubin (0.2-1) mg/dl AST (15-37) U/L ALT (12-78) U/L Alkaline Phosphatase (45-117) U/L Total Protein (6.4-8.2) gm/dl Albumin (3.4-5.0) gm/dl Globulin (2.5-4.0) gm/dl Albumin/Globulin Ratio (0.9-2) Beta-Hydroxybutyric Acd (0.2-2.81) mg/dl COVID-19 Eval Order SARS-CoV-2 (PCR) (Negative) Hepatitis C Ab Screen (Neg) Diagnostic Findings XR foot RT 2V CLINICAL HISTORY: R 2nd toe wound on dorsum COMPARISON STUDY: None. FINDINGS: Near complete bony destruction of the right second toe middle phalanx. There is diffuse soft tissue swelling within the right second toe. The Lisfranc joint is intact. Vascular calcifications are noted. Tiny posterior calcaneal spur. The residual bony fragments of the right second toe middle phalanx demonstrate dorsal subluxation. IMPRESSION: Near complete bony destruction of the right second toe middle phalanx. This is consistent with an osteomyelitis. (1) Osteomyelitis Laterality: right Osteomyelitis location: foot Osteomyelitis type: unspecified type Qualified Code(s): M86.9 - Osteomyelitis, unspecified
[2021-06-20] MEDS ORDERED: MAGNESIUM SULFATE / D5W 1 GM/100 ML BAG IV ONE (15:15)
--- NOTE | 2021-06-20 15:16 | Electrocardiogram Report ---
Test Reason : Blood Pressure : / mmHG Vent. Rate : 088 BPM Atrial Rate : 088 BPM P-R Int : 140 ms QRS Dur : 078 ms QT Int : 394 ms P-R-T Axes : 063 -11 072 degrees QTc Int : 476 ms Normal sinus rhythm Normal ECG When compared with ECG of 07-APR-2013 20:27, No significant change was found Confirmed by Saman Sauceda ([id number]) on 06/20/2021 3:16:38 PM Referred By: REFERRED SELF Confirmed By:Alfredo Sauceda
[2021-06-20] MEDS: APIXABAN 5 MG TABLET PO SCH (16:19)
[2021-06-20] MEDS ORDERED: Nursing to Pharmacy Communication SCH (19:30)
--- NOTE | 2021-06-20 19:53 | Progress Notes ---
DATE OF SERVICE: 06/20/2021 The patient was seen in conjunction with NJ Siegel. For further details, refer tiffany gonzales her dictation. She and I saw and evaluated this patient together, and I am in agreement with the roxie bailey. Mr. Solis sustained an injury to his toe when something fell on it back in April. This was his right foot second toe. He has diabetes and neuropathy. He was getting wound care when things did not heal . About a week ago when he flew from his home in [place] to [place], things got worse. He cam e to the ER yesterday and was admitted. Radiographs are obtained and reviewed and demonstrate osteom yelitis of the middle phalanx on the right second toe. His white count is normal today, he is afebri le. He is on IV antibiotics, daptomycin. He was on some oral antibiotics through wound care [facility]. He has a nonpalpable dorsalis pedis pulse. There are no signs of ischemia. The foot is warm with ca pillary refill less than 2 seconds and he has a 1+ posterior tibial pulse. There is a 1 cm plus open wound over the proximal interphalangeal joint of the right second toe. A black eschar is present. There is swelling, enlargement and redness. The plantar skin is okay. His health history is noted and reviewed. He recently had quintuple bypass surgery. He is on Eliqui s. His last dose of Eliquis was Saturday night, which now is 48 hours ago. He has no history of bleed ing, blood clots, metal allergy or MRSA. Discussed with Mr. Solis that he has osteomyelitis of the m iddle phalanx on the second toe. Antibiotics and wound care alone are not going to treat this and he needs surgical intervention. Debridement is appropriate, and for a toe like this, amputation is the answer. We will try to preserve some portion of the proximal phalanx. He is educated about the amelia kathryn. We talked about alternatives, risks and benefits. He consents to the operation and an informe d consent was obtained. He will be n.p.o. after midnight for surgery plan tomorrow, which will be 2- 1/2 days after his last dose of blood thinner. He will continue on IV antibiotics. We will need to discuss his return home to make sure that everything is safe and he has appropriate care there. Job ID: [id number]
[2021-06-20] MEDS: ATORVASTATIN 40 MG TAB PO SCH (20:23)
[2021-06-20] MEDS: INSULIN GLARGINE SOLOSTAR 100 UNITS/ML 3 ML PEN SC SCH (20:25)
[2021-06-21] MEDS ORDERED: oxyCODONE HCL IR 5 MG TAB (IMMEDIATE RELEASE) PO PRN (00:20)
[2021-06-21] MEDS: oxyCODONE HCL IR 5 MG TAB (IMMEDIATE RELEASE) PO PRN ×3 (00:44→19:52)
[2021-06-21] MEDS: INSULIN ASPART 100 UNITS/ML 3 ML PEN SC SCH ×5 (00:45→20:47)
[2021-06-21] MEDS: PIPERACILLIN/TAZOBACTAM 4.5 GM in DEXTROSE 5% 100 ML IV SCH ×2 (03:55→10:31)
[2021-06-21] MEDS: DAPTOmycin 425 MG in SYRINGE 0 ML IV SCH (06:13)
[2021-06-21 07:58] LABS: Hematocrit (blood only) 34.8 % (42-52); Hemoglobin 11.3 g/dL (14.0-18.0); Mean Corpuscular Hgb Conc 32.5 g/dL (32-36); Platelet Count 259 K/uL (130-400); RDW Coefficient of Variation 14.5 % (11.5-14.5); RDW Standard Deviation 41.4 fL (36.4-46.3); Red Blood Count 4.52 M/uL (4.7-6.1); White Blood Count 4.91 K/uL (4.8-10.8)
--- NOTE | 2021-06-21 08:13 | History & Physical Bridge Note ---
Date of Service June 21, 2021 History & Physical Bridge Note I have examined the patient, reviewed the History & Physical and in the interval since the performance of the History & Physical I have noted the following changes of clinical significance: no changes noted
[2021-06-21 08:25] LABS: BUN Creatinine Ratio 20.7 (10-20); Calcium 8.6 mg/dl (8.5-10.1); Creatinine Clr Calc Pharmacy 108.8 ml/min; Est GFR (African American) 118.2 ml/min; Potassium 4.3 mmol/L (3.5-5.1)
[2021-06-21] MEDS ORDERED: LIDOCAINE 2% 2 ML VIAL/AMP(20MG/ML) INFIL ONE (09:55)
[2021-06-21] MEDS ORDERED: MIDAZOLAM HCL 1 MG/ML 2ML VIAL ONE (09:55)
[2021-06-21] MEDS ORDERED: fentaNYL citrate 100 MCG/2 ML VIAL ONE (09:55)
[2021-06-21] MEDS ORDERED: PROPOFOL IV EMULSION 10 MG/ML 20 ML VIAL IV ONE (09:55)
[2021-06-21] MEDS ORDERED: DEXAMETHASONE SOD INJ 4 MG/ML VIAL ONE (09:55)
[2021-06-21] MEDS ORDERED: ONDANSETRON INJ 2 MG/ML 2 ML VIAL ONE (09:55)
[2021-06-21] MEDS ORDERED: ePHEDrine sulfate 50 MG/ML AMP IV PRN (10:15)
[2021-06-21] MEDS ORDERED: ATROPINE SULFATE 0.1 MG/ML 10ML SYR IV PRN (10:15)
[2021-06-21] MEDS ORDERED: ONDANSETRON INJ 2 MG/ML 2 ML VIAL IV PRN ×2 (10:15→12:57)
[2021-06-21] MEDS ORDERED: HYDROmorphone INJ 1 MG/ML SYRINGE IV PRN (10:15)
--- NOTE | 2021-06-21 10:18 | Anesthesiology Consultation ---
Date of Service June 21, 2021 Assessment & Plan (1) Encounter for pre-operative examination: Chart Review Chart Review: Acceptable Risk for Surgery and Patient NOT seen in Pre Admission Testing Consults Requested none History Surgery Operation Date: 06/21/21 09:45 Proposed Procedures p Right 2nd Toe Amputation - John Kelly MD Height/Weight Height: 6 ft Weight: 70.9 kg Allergies Allergy/AdvReac Type Severity Reaction Status Date / Time kiwi Allergy Intermediate EYES SWELL Verified 06/19/21 18:40 SHUT oyster extract Allergy (oysters) Verified 06/20/21 19:25 EYES SWELL SHUT shellfish derived Allergy Unknown Verified 06/20/21 19:25 Medications Home Medications Medication Instructions Recorded Confirmed Last Taken apixaban 5 mg tablet (Eliquis) 5 mg PO BID 06/19/21 06/19/21 06/19/21 08:00 atorvastatin 80 mg tablet 80 mg PO HS 06/19/21 06/19/21 06/18/21 clindamycin HCl 150 mg capsule 450 mg PO TID 7 Days #63 cap 06/19/21 Unknown ferrous gluconate 324 mg (37.5 mg 324 mg PO DAILY 06/19/21 06/19/21 06/19/21 iron) tablet insulin aspart U-100 100 unit/mL 0 unit SUBCUT TIDM 06/19/21 06/19/21 06/19/21 12:00 (3 mL) subcutaneous pen (Novolog Flexpen U-100 Insulin aspart) insulin glargine 100 unit/mL (3 18 unit SUBCUT PM 06/19/21 06/19/21 06/18/21 mL) subcutaneous pen levofloxacin 750 mg tablet 750 mg PO DAILY 7 Days #7 tab 06/19/21 Unknown metformin 1,000 mg tablet 1,000 mg PO BID 06/19/21 06/19/21 06/19/21 08:00 sertraline 50 mg tablet 50 mg PO DAILY 06/19/21 06/19/21 06/19/21 sitagliptin 100 mg tablet (Januvia) 100 mg PO DAILY 06/19/21 06/19/21 06/19/21 tramadol 50 mg tablet 50 mg PO Q8H PRN #9 tab 06/19/21 Unknown Active Medications Generic Name Dose Route Start Last Admin Trade Name Freq PRN Reason Stop Dose Admin Acetaminophen 650 mg 06/20/21 00:26 06/20/21 20:21 Acetaminophen 325 Mg Tab PO 07/20/21 00:25 650 mg Q4H PRN Administration pain/fever Apixaban 5 mg 06/20/21 09:00 06/20/21 16:19 Apixaban 5 Mg Tablet PO 07/20/21 08:59 Not Given BID VIPUL Atorvastatin Calcium 80 mg 06/20/21 21:00 06/20/21 20:23 Atorvastatin 40 Mg Tab PO 07/20/21 20:59 80 mg HS VIPUL Administration Ferrous Gluconate 324 mg 06/20/21 09:00 06/20/21 10:49 Ferrous Gluconate 324 Mg Tab PO 07/20/21 08:59 324 mg DAILY VIPUL Administration Piperacillin Sod/Tazobactam 120 mls @ 30 mls/hr 06/20/21 02:00 06/21/21 07:55 Sod 4.5 gm/ Dextrose IV 06/27/21 01:59 Infused Q8H VIPUL Infusion Protocol Daptomycin 425 mg/ Syringe 8.5 mls @ 4.25 mls/min 06/20/21 06:00 06/21/21 06:13 IV 06/27/21 05:59 4.25 mls/min Q24H VIPUL Administration Protocol Insulin Aspart 0 units 06/20/21 06:00 06/21/21 06:27 Insulin Aspart 100 Units/Ml 3 Ml Pen SC 07/20/21 05:59 4 units Q6 VIPUL Administration Insulin Glargine 10 units 06/20/21 21:00 06/20/21 20:25 Insulin Glargine Solostar 100 Units/Ml 3 Ml Pen SC 07/20/21 20:59 10 units HS VIPUL Administration Oxycodone HCl 10 mg 06/21/21 00:20 06/21/21 06:13 Oxycodone Hcl Ir 5 Mg Tab (Immediate Release) PO 07/05/21 00:19 10 mg Q6H PRN Administration Pain Sertraline HCl 50 mg 06/20/21 09:00 06/20/21 10:49 Sertraline Hcl 50 Mg Tablet PO 07/20/21 08:59 50 mg DAILY VIPUL Administration Past Medical History Medical History Abnormal liver function (Unknown) Diabetes MDD (major depressive disorder) Exercise / Class Metabolic Activity II 4-5 Yardwork/Stairs/Walk up hill Past Surgical History Surgical History No pertinent past surgical history Past Anesthesia History No Hx of Anesthesia Complications and No Family Hx of Anesthesia Complications History of PONV No Hx of PONV and No Hx of Motion Sickness Social History Smoking Status: Never smoker Hx Alcohol Use: No Hx Substance Use: No Physical Exam Vital Signs Last Vital Signs Temp 36.6 C 06/21/21 08:00 Pulse 81 06/21/21 08:00 Resp 17 06/21/21 08:00 BP 111/71 06/21/21 08:00 Pulse Ox 99 06/21/21 08:00 Testing Laboratory Results 06/21/21 07:18 06/21/21 07:18 Hemoglobin A1c 9.8 % (4.5-5.6) H 06/20/21 06:29 06/19/21 18:26 Gram Stain - Final Toe Wound Culture - Preliminary Pin-point growth present, reincubating. 06/21/21 06/21/21 06:00 00:10 POC Glucose 233 H 279 H Electrocardiogram Findings: + NSR @ normal ecg
[2021-06-21] MEDS ORDERED: BUPIVACAINE 0.5 % 5 MG/1 ML MPF 30ML VIAL ONE (10:35)
[2021-06-21] MEDS ORDERED: LIDOCAINE 1% LOCAL 20 ML VIAL ONE (10:36)
[2021-06-21] MEDS ORDERED: ePHEDrine sulfate 50 MG/ML SYR ONE (11:09)
--- NOTE | 2021-06-21 11:57 | Operative Report ---
Post Operative Report Pre & Post Diagnosis Operation Date: 06/21/21 09:45 Pre-Op Diagnosis: Osteomyelitis right foot second toe Post-Op Diagnosis: Same I identified the patient and participated in the time-out.: Yes Procedure Operation Date: 06/21/21 09:45 Actual Procedures p Right Second Toe Amputation(Right) - John Kelly MD Surgeon John Kelly MD Forest Worker akiko llanes, fellow Estimated Blood Loss 3 Findings Consistent with Post-Op Diagnosis Osteomyelitis involving the distal portion of the proximal phalanx and the entire middle phalanx. Specimens Culture for Gram stain aerobic and anaerobic from the second toe proximal interphalangeal joint area. The second toe resection was sent for specimen. Drains None Anesthesia Type General Regional Complications none Disposition Accompanied Patient To Recovery: No Disposition: Recovery Room Indications Mr. Hoffman has sustained an injury about 6 weeks ago to the right second toe. He had a soft tissue injury. This initially did not heal. He sought wound care. He was on antibiotics and getting wound care. He is from [place]. He came to [place] to vacation. Things got worse during his travel and and he was admitted to the hospital several days ago. Radiographs demonstrate clear-cut osteomyelitis involving the middle phalanx of the right second toe. He has a open wound there with exposed tendon and bone. Treatment options risks and benefits were discussed. Treatment consisting of debridement and partial amputation of the infected bone is discussed and he agreed to proceed. Description of Procedure Informed consent obtained. Patient identified. He identified the operative site as the right foot second toe. I marked with my initials. A preoperative surgical timeout was performed. A preop dose of IV antibiotics was given. He was taken to the operating room positioned supine on the operating table with a bump under the right hip and a tourniquet on the right calf just below the peroneal nerve. The limb was exsanguinated with gravity and the tourniquet inflated to 225 mmHg. The leg was prescrubbed with Betadine and prepped and draped in usual sterile fashion with Betadine. There was a 1 cm open wound with macerated necrotic tendon. This was overlying the proximal interphalangeal joint. There was palpable bone and exposed bone within the wound. I used a hemostat to spread this tissue apart and then obtained a deep culture which was sent for Gram stain and routine C&S. I then made a proximal extent longitudinal incision dorsally and then a tennis racquet in 6 shaped incision distally curving distal and plantar around the open wound and then around the distal portion of the distal phalanx. The distal phalanx and the middle phalanx were then shelled out at the level between the subcutaneous tissues and the fascia. The flexor tendons were amputated as far back proximally as possible as was the extensor tendon. The head of the proximal phalanx showed evidence of osteomyelitis and it was resected about 1 cm proximal back into healthy normal appearing bone which was beveled with a rongeur. Sharp excisional debridement of inflammatory tissue was noted. Some purulence was noted in the region of the osteomyelitis. The resected toe sent for specimen. Rongeur was utilized to help debride inflammatory tissue. The tourniquet was let down with good return of circulation to everywhere except the very tip of the plantar toe. Irrigation was then performed with approximately 500 cc of sterile normal saline. The dorsal longitudinal incision was closed with 3-0 nylon side to side. The distal portion was then shaped appropriately amputating some medial and lateral tissue as well as distal and then it was folded up dorsally to cover up very nicely and held in position with three 3-0 nylon sutures. Prior to closure meticulous hemostasis was performed with electrocautery. There was good circulation in the remaining tissues. Local anesthetic was injected approximately 7 cc of a 50-50 mixture of Marcaine and lidocaine for digital block. Xeroform was applied along with fluffs between the toes and a bulky soft sterile dressing soft wrap Philippe wrap and postop shoe. Patient awake from anesthesia without difficulty taken to recovery in stable condition. Specimens none were as mentioned above. Counts were correct. Blood loss is estimated to be 3 cc. At the conclusion the operation there was no one available to speak to. All of the osteomyelitic bone was removed however there is likely some soft tissue contamination remaining as we preserved some of the plantar tissue which would have been just deep to the area of infection. Therefore I would favor at least an intermediate course of antibiotics rather than short course. I attest to the content of the Intraoperative Record and any orders documented therein. Any exceptions are noted below.
--- NOTE | 2021-06-21 11:58 | Operative Report ---
Post Operative Report Pre & Post Diagnosis Operation Date: 06/21/21 09:45 Pre-Op Diagnosis: Osteomyelitis Post-Op Diagnosis: Osteomyelitis I identified the patient and participated in the time-out.: Yes Procedure Operation Date: 06/21/21 09:45 Actual Procedures p Right Second Toe Amputation(Right) - John Kelly MD Surgeon John Kelly MD Dross Puller Seema Ceja MD Estimated Blood Loss 3 Findings Consistent with Post-Op Diagnosis see Dr. Kelly note Specimens see Dr. Kelly note Description of Procedure see Dr. Kelly note I attest to the content of the Intraoperative Record and any orders documented therein. Any exceptions are noted below. Supervising Physician Co-Signing Physician Notes Dr. Kelly
[2021-06-21] MEDS ORDERED: ALUMINUM/MAGNESIUM SUSP 30 ML UDC PO PRN (12:57)
[2021-06-21] MEDS ORDERED: diphenhydrAMINE 50 MG/ML VIAL IV PRN (12:57)
[2021-06-21] MEDS ORDERED: METOCLOPRAMIDE HCL INJ 5 MG/ML 2 ML VIAL IV PRN (12:57)
[2021-06-21] MEDS ORDERED: NALOXONE HCL 0.4 MG/1 ML VIAL/CARP IV PRN (12:57)
[2021-06-21] MEDS ORDERED: bisacodyL 10 MG SUPP PR PRN (12:57)
[2021-06-21] MEDS ORDERED: MAGNESIUM HYDROXIDE SUSP 30 ML UDC PO PRN (12:57)
--- NOTE | 2021-06-21 13:06 | Anesthesiology Progress Note ---
Date of Service June 21, 2021 Anesthesia Post Procedure Vital Signs Vital Signs: Temp Pulse Pulse Resp BP Pulse Ox 06/21/21 12:25 96 H 12 104/71 100 06/21/21 12:15 100 H 17 109/70 100 06/21/21 12:05 97 H 12 115/69 100 06/21/21 11:57 36.3 C L 95 H 17 121/73 100 06/21/21 10:13 36.4 C L 83 18 133/84 99 06/21/21 08:00 36.6 C 81 17 111/71 99 06/20/21 23:01 36.7 C 61 16 125/78 96 06/20/21 15:59 36.5 C 91 H 17 126/75 97 Pain Intensity Right Foot: Pain Intensity: 7 Transfer of Care Handoff Completed per policy Notes Mental Status: alert / awake / arousable and participated in evaluation Patient Amnestic to Procedure: Yes Nausea / Vomiting: adequately controlled Pain: adequately controlled Airway Patency, RR, SpO2: stable & adequate BP & HR: stable & adequate Hydration State: stable & adequate Anesthetic Complications: no major complications apparent and Pt Satisfied with anesthetic care
[2021-06-21] MEDS: FERROUS GLUCONATE 324 MG TAB PO SCH (14:18)
[2021-06-21] MEDS: SERTRALINE HCL 50 MG TABLET PO SCH (14:18)
--- NOTE | 2021-06-21 14:43 | Fluoroscopy Report ---
FL toe RT 2V CLINICAL HISTORY: Amputation of right 2nd toe COMPARISON STUDY: None. Correlation is made with radiograph of the right foot performed on June 19, 2021 FLUOROSCOPY TIME: 1 second. NUMBER OF FLUOROSCOPIC IMAGES: 1 FINDINGS: Single fluoroscopic intraoperative images presented for review. Interval removal of the distal and mi d second phalanges. Osteotomy line is seen within mid aspect of the proximal second phalanx. IMPRESSION: Postoperative changes as detailed above. ACT 112: Negative or not required by law. The above report was generated using voice recognition software. It may contain grammatical, syntax o r spelling errors. Electronically signed by: Neela Melendez DO 06/21/2021 2:42 PM
[2021-06-21] MEDS ORDERED: COUGH DROP (SUGAR FREE) LOZ 24 LOZ/1 BOX BUCCAL PRN (16:37)
[2021-06-21] MEDS ORDERED: Nursing to Pharmacy Communication SCH (16:45)
[2021-06-21] MEDS: SODIUM CHLORIDE 0.9% 1000ML 1,000 ML IV SCH (17:34)
[2021-06-21] MEDS: cefTRIAXone SODIUM 2,000 MG in DEXTROSE 5% 50 ML IV SCH (18:07)
--- NOTE | 2021-06-21 19:05 | Hospitalist Progress Note ---
Date of Service June 21, 2021 Assessment & Plan (1) Diabetic foot: (2) Osteomyelitis: Plan: Right toe osteomyelitis Right foot x-ray showed near complete bony destruction of the right second toe middle phalanx. This is consistent with an osteomyelitis. S/P Right Second Toe Amputation performed by Dr Kelly No Postop complication Wound culture grew staph aureus species Continue IV antibiotic Rocephin Patient plan to go back to [place] on Saturday We will discuss with Ortho about antibiotic on discharge Continue PT/OT (3) Hyperglycemia: Plan: Most recent hemoglobin A1c 9.8 Continue to hold Metformin hold metformin On Lantus and insulin protocol for optimal glycemic control Consider pharmacy consult for glycemic management due to elevated blood sugar Continue monitor blood sugar Plan: H/O CAD S/p CABG On statin Eliquis resumed Admission and Anticipated Discharge Date Admission Date: June 19, 2021 Subjective Patient was seen and examined for follow-up of toe amputation Lying in bed with no distress watching TV Patient said that he feels fine denies any new symptoms Physical Exam Physical Exam: General- No acute distress Head- atraumatic Eyes- PERRL, EOMI, ENT- oropharynx clear Neck- supple, no JVD Lungs- clear to auscultation Heart- regular rhythm; no murmur Abdomen- normal bowel sounds, soft, nontender Extremities- no calf tenderness Neuro- alert, oriented x 3; PERRL, EOMI; no facial palsy; no dysarthria Skin- warm & dry Results & Data Results & Data ([facility]) Vital Signs (Past 12 Hours) Vital Signs Temp Pulse Pulse Resp BP Pulse Ox 06/21/21 16:07 36.6 C 90 16 109/73 99 06/21/21 15:19 36.6 C 93 H 16 106/67 100 06/21/21 14:03 94 H 17 108/69 98 06/21/21 13:38 93 H 06/21/21 13:36 36.5 C 16 105/70 100 06/21/21 12:25 96 H 12 104/71 100 06/21/21 12:15 100 H 17 109/70 100 06/21/21 12:05 97 H 12 115/69 100 06/21/21 11:57 36.3 C L 95 H 17 121/73 100 06/21/21 10:13 36.4 C L 83 18 133/84 99 06/21/21 08:00 36.6 C 81 17 111/71 99 (1) Osteomyelitis Laterality: right Osteomyelitis location: foot Osteomyelitis type: unspecified type Qualified Code(s): M86.9 - Osteomyelitis, unspecified
[2021-06-21] MEDS: SENNA 8.6 MG TAB PO SCH (20:41)
[2021-06-21] MEDS: ATORVASTATIN 40 MG TAB PO SCH (20:41)
[2021-06-21] MEDS: DOCUSATE SODIUM 100 MG CAP PO SCH (20:41)
[2021-06-21] MEDS: APIXABAN 5 MG TABLET PO SCH (20:41)
[2021-06-21] MEDS: INSULIN GLARGINE SOLOSTAR 100 UNITS/ML 3 ML PEN SC SCH (20:46)
[2021-06-21] MEDS: ACETAMINOPHEN 325 MG TAB PO PRN (23:43)
[2021-06-21] MEDS ORDERED: MoRPHine SULFATE 4 MG/ML 1 ML CARP\\VIAL IV PRN (23:51)
[2021-06-22] MEDS: SODIUM CHLORIDE 0.9% 1000ML 1,000 ML IV SCH (00:06)
[2021-06-22] MEDS: oxyCODONE HCL IR 5 MG TAB (IMMEDIATE RELEASE) PO PRN ×3 (03:20→19:49)
[2021-06-22] MEDS: DAPTOmycin 425 MG in SYRINGE 0 ML IV SCH (05:27)
[2021-06-22] MEDS: MULTIVITAMIN TAB PO SCH (09:02)
[2021-06-22] MEDS: INSULIN ASPART 100 UNITS/ML 3 ML PEN SC SCH ×5 (09:02→23:51)
[2021-06-22] MEDS: APIXABAN 5 MG TABLET PO SCH ×2 (09:02→20:50)
[2021-06-22] MEDS: DOCUSATE SODIUM 100 MG CAP PO SCH ×2 (09:02→20:50)
[2021-06-22] MEDS: SERTRALINE HCL 50 MG TABLET PO SCH (09:02)
[2021-06-22] MEDS: FERROUS GLUCONATE 324 MG TAB PO SCH (09:02)
[2021-06-22 10:39] LABS: Hematocrit (blood only) 33.4 % (42-52); Hemoglobin 10.7 g/dL (14.0-18.0); Mean Corpuscular Hemoglobin 24.5 pg (25-34); Mean Corpuscular Volume 76.6 fL (80-100); Mean Platelet Volume 10.1 fL (7.4-10.4); Platelet Count 232 K/uL (130-400); RDW Coefficient of Variation 14.4 % (11.5-14.5); RDW Standard Deviation 40.9 fL (36.4-46.3); Red Blood Count 4.36 M/uL (4.7-6.1); White Blood Count 5.58 K/uL (4.8-10.8)
[2021-06-22 11:07] LABS: BUN Creatinine Ratio 20.9 (10-20); Calcium 8.9 mg/dl (8.5-10.1); Creatinine Clr Calc Pharmacy 103.4 ml/min; Est GFR (African American) 115.7 ml/min; Est GFR (Non-African American) 99.9 ml/min; Potassium 4.9 mmol/L (3.5-5.1)
[2021-06-22 11:33] LABS: Beta-Hydroxybutyrate 1.84 mg/dl (0.2-2.81)
[2021-06-22] MEDS ORDERED: PHARMACY GLYCEMIC MGMT CONSULT PRN ×2 (11:38→14:48)
[2021-06-22] MEDS ORDERED: INSULIN GLARGINE SOLOSTAR 100 UNITS/ML 3 ML PEN SC ONE (12:00)
[2021-06-22] MEDS ORDERED: INSULIN HUMAN REGULAR PER UNIT 6 UNITS in SYRINGE 5.94 ML IV ONE (12:15)
--- NOTE | 2021-06-22 12:15 | Pharmacy Report ---
Pharmacy Glycemic Short Note 2 - Date of Service June 22, 2021 - Glycemic Short BSG Results (Last 24 hours): 06/21/21 06/21/21 06/21/21 12:01 17:33 20:36 Glucose POC Glucose 240 H 300 H 292 H 06/22/21 06/22/21 06/22/21 08:18 10:25 11:54 Glucose 366 H* POC Glucose 271 H 401 H* 06/22/21 11:55 Glucose POC Glucose 415 H* OUTPATIENT ANTIDIABETIC REGIMEN: * Insulin glargine 18 units qPM * Insulin novolog 4-18 units with meals * metformin * sitagliptin ASSESSMENT: * Meliton is a 56 yo male with uncontrolled T2DM s/p toe amputation for osteomyelitis * He received a total of 40 units of insulin yesterday (10 units basal -- 30 units bolus) with all BSGs >200 mg/dL * He may have received dexamethasone IV marialuisa-operatively which would explain worsening of glycemic control over the past 12 hours. He also appears to be basal deficient at this point. * I will increase both basal and bolus insulin and order a one time dose of regular IV insulin for BSG of 415 mg/dL at lunchtime. PLAN FOR INPATIENT GLYCEMIC CONTROL: * Hold outpatient oral diabetes medications * Basal insulin - increase * Give additional 10 units of Lantus at lunch AND 12 units of Lantus 14 at bedtime for total dose of 24 units today * Bolus insulin - increase * NovoLog per scale ACHS or Q6hrs while NPO * Goal Range: Low 110 mg/dL - High 140 mg/dL * Correction Factor: 25 mg/dL/unit * Nutritional / Prandial insulin per carb ratio of 1 unit per 8 grams CHO consumed PLAN FOR DISCHARGE: * A1c of 9.8% is above goal * recs TBD
--- NOTE | 2021-06-22 15:39 | Hospitalist Progress Note ---
Date of Service June 22, 2021 Assessment & Plan (1) Diabetic foot: (2) Osteomyelitis: Plan: Right toe osteomyelitis Right foot x-ray showed near complete bony destruction of the right second toe middle phalanx. This is consistent with an osteomyelitis. S/P Right Second Toe Amputation performed by Dr Kelly No Postop complication Wound culture grew staph aureus species Continue IV antibiotic Rocephin Patient plan to go back to [place] on Saturday ID consult to help for antibiotic on discharge and duration Continue PT/OT Monitor H&H (3) Hyperglycemia: Plan: Most recent hemoglobin A1c 9.8 Continue to hold Metformin hold metformin On Lantus and insulin protocol for optimal glycemic control Pharmacy on board for glycemic management Continue monitor blood sugar Plan: H/O CAD S/p CABG On statin Admission and Anticipated Discharge Date Admission Date: June 19, 2021 Subjective Patient was seen and examined for follow-up of toe amputation Lying in bed with no distress Denies any chest pain, palpitation, dizziness, shortness of breath. Physical Exam Physical Exam: General- No acute distress Head- atraumatic Eyes- PERRL, EOMI, ENT- oropharynx clear Neck- supple, no JVD Lungs- clear to auscultation Heart- regular rhythm; no murmur Abdomen- normal bowel sounds, soft, nontender Extremities- no calf tenderness Neuro- alert, oriented x 3; PERRL, EOMI; no facial palsy; no dysarthria Skin- warm & dry Results & Data Results & Data ([facility]) Vital Signs (Past 12 Hours) Vital Signs Temp Pulse Resp BP Pulse Ox 06/22/21 15:20 36.5 C 79 20 103/68 96 06/22/21 11:00 36.7 C 83 20 110/74 98 06/22/21 07:00 36.7 C 83 20 110/75 98 (1) Osteomyelitis Laterality: right Osteomyelitis location: foot Osteomyelitis type: unspecified type Qualified Code(s): M86.9 - Osteomyelitis, unspecified
[2021-06-22] MEDS: cefTRIAXone SODIUM 2,000 MG in DEXTROSE 5% 50 ML IV SCH (17:59)
[2021-06-22] MEDS: ATORVASTATIN 40 MG TAB PO SCH (20:49)
[2021-06-22] MEDS: SENNA 8.6 MG TAB PO SCH (20:50)
[2021-06-22] MEDS ORDERED: INSULIN GLARGINE SOLOSTAR 100 UNITS/ML 3 ML PEN SC SCH ×2 (21:00)
--- NOTE | 2021-06-22 22:07 | Orthopedic Progress Note ---
Date of Service June 22, 2021 Assessment & Plan (1) Status post amputation of lesser toe: Plan: Patient was educated regarding today's findings. A new postsurgical dressing was applied by me. Philippe wrap was also applied to assist with any potential edema control, though he has minimal edema at this time. He will require continued antibiotics. We will leave this up to infectious disease to determine what course of IV antibiotics he will need for the osteomyelitis, and when to transition him to orals. Hospitalist service was made aware. Hopefully he may be discharged tomorrow.Continue his Eliquis twice daily. Admission and Anticipated Discharge Date Admission Date: June 19, 2021 Subjective Patient is seen in his room this morning. He is in good spirits. States he did well overnight. He is having minimal pain. He does describe some soreness in his Right foot. He states he is currently bored and is wondering when he can go home. Denies any chest pain, shortness of breath, nausea, vomiting, or abdominal pain. Review of Systems Review of Systems: Unchanged from yesterday. Physical Exam Physical Exam: General: Well-developed, well-nourished, middle-aged male, in no acute distress. Sitting in his bed. Alert and oriented. Skin: Warm and dry with good turgor. He has an intact postop dressing on the right foot. Upon removal, there is scant dried blood on his dressings. There is no current active bleeding. What remains of the second toe is covered by Xeroform, and this was left in place. Musculoskeletal: Patient has intact motor function of his ankle and other digits. Neurologic: Gross sensation is intact across the top and bottom of his foot. Peripheral pulses are 2+. Results & Data ([facility]) Vital Signs (Past 12 Hours) Vital Signs Temp Pulse Resp BP Pulse Ox 06/22/21 15:20 36.5 C 79 20 103/68 96 06/22/21 11:00 36.7 C 83 20 110/74 98 Laboratory Results Blood sugars this morning have been elevated at 271.
[2021-06-23] MEDS ORDERED: INSULIN ASPART 100 UNITS/ML 3 ML PEN SC SCH
[2021-06-23] MEDS: oxyCODONE HCL IR 5 MG TAB (IMMEDIATE RELEASE) PO PRN ×3 (02:01→15:53)
[2021-06-23] MEDS: INSULIN ASPART 100 UNITS/ML 3 ML PEN SC SCH ×4 (04:09→17:47)
[2021-06-23] MEDS: DAPTOmycin 425 MG in SYRINGE 0 ML IV SCH (05:47)
--- NOTE | 2021-06-23 08:00 | Progress Notes ---
DATE: 06/23/2021. SUBJECTIVE: Resting comfortably in bed. No significant problems. OBJECTIVE: He is afebrile and his vital signs are stable. His dressing is clean, dry, and intact. White count yesterday was 6, hemoglobin 11, hematocrit 33, platelet count 232. Culture shows Staph on 06/19/2021, methicillin-sensitive Staph. The operative culture from has pinpoint growth and is re-incubating. IMPRESSION: Right foot second toe osteomyelitis, status post amputation. PLAN: Findings discussed. Recommend elevation. Wound care instructions were given. The dressing c an be changed every 1-2 days. Plan is for him to be discharged after ID makes recommendations on his antibiotics. He can weightbear as tolerated on his heel. He should have followup next week, which he does with his wound care doctor. He will subsequently need to establish care with a betting clerks, o rthopedic surgeon, or foot and ankle specialist to monitor the wound and remove sutures. If he has a ny problems with severe pain, swelling, fevers, or any other problems or questions, he can call my of fice or should go to the nearest medical facility. Sutures typically left in for 2-3 weeks. At this time, Infectious diseases consult is pending. I would favor some course of intravenous antibiotics followed by orals at their discretion. Orthopedically, the patient is okay to be discharged any time . Job ID: [id number]
[2021-06-23] MEDS: APIXABAN 5 MG TABLET PO SCH (08:45)
[2021-06-23] MEDS: SERTRALINE HCL 50 MG TABLET PO SCH (08:45)
[2021-06-23] MEDS: DOCUSATE SODIUM 100 MG CAP PO SCH (08:45)
[2021-06-23] MEDS: MULTIVITAMIN TAB PO SCH (08:45)
[2021-06-23] MEDS: FERROUS GLUCONATE 324 MG TAB PO SCH (08:45)
[2021-06-23] MEDS ORDERED: INSULIN GLARGINE SOLOSTAR 100 UNITS/ML 3 ML PEN SC SCH (09:00)
[2021-06-23 10:26] LABS: Creatinine Clr Calc Pharmacy 107.4 ml/min; Est GFR (African American) 117.6 ml/min; Est GFR (Non-African American) 101.4 ml/min
--- NOTE | 2021-06-23 14:39 | Pharmacy Report ---
Pharmacy Glycemic Short Note 2 - Date of Service June 23, 2021 - Glycemic Short BSG Results (Last 24 hours): 06/22/21 06/22/21 06/22/21 17:16 20:36 20:37 POC Glucose 254 H 316 H* 306 H* 06/22/21 06/23/21 06/23/21 23:42 04:06 08:19 POC Glucose 207 H 159 H 197 H 06/23/21 12:01 POC Glucose 239 H OUTPATIENT ANTIDIABETIC REGIMEN: Glargine 16 units PM Novolog SSI (BG < 150: 0 units, 151-200: 3 units, 201-250: 4 units, 251-300: 5 units, 301-350: 6 units, etc.) Januvia 100mg daily Metformin 1000mg BID ASSESSMENT: 06/23/21: * Meliton received 78 units of insulin yesterday (24 units basal, 54 units of bolus). Glycemic control has improved greatly, however BSGs remain above goal. * Fasting BSG = 197 mg/dL. Will increase basal insulin again today (~16%) * Tighten novolog CF and CR for lunch BSG > 200 mg/dL 06/22/21: * Meliton is a 56 yo male with uncontrolled T2DM s/p toe amputation for osteomyelitis * He received a total of 40 units of insulin yesterday (10 units basal -- 30 units bolus) with all BSGs >200 mg/dL * He may have received dexamethasone IV marialuisa-operatively which would explain worsening of glycemic control over the past 12 hours. He also appears to be basal deficient at this point. * I will increase both basal and bolus insulin and order a one time dose of regular IV insulin for BSG of 415 mg/dL at lunchtime. PLAN FOR INPATIENT GLYCEMIC CONTROL: * Hold outpatient oral diabetes medications * Basal insulin - increase * Lantus 14 units SQ BID * Bolus insulin - tighten * NovoLog per scale ACHS or Q6hrs while NPO * Goal Range: Low 110 mg/dL - High 140 mg/dL * Correction Factor: 18 mg/dL/unit * Nutritional / Prandial insulin per carb ratio of 1 unit per 5 grams CHO consumed PLAN FOR DISCHARGE: * A1c of 9.8% is above goal * Recommend increasing basal insulin (exact needs have not been established yet - anticipate ~25-28 units per day) * Consider starting a set dose of novolog with meals in addition to sliding scale * Please refer to CDE not for additional recs
--- NOTE | 2021-06-23 14:53 | Hospitalist Progress Note ---
Date of Service June 23, 2021 Assessment & Plan (1) Diabetic foot: (2) Osteomyelitis: Plan: Right toe osteomyelitis Right foot x-ray showed near complete bony destruction of the right second toe middle phalanx. This is consistent with an osteomyelitis. S/P Right Second Toe Amputation performed by Dr Kelly No Postop complication Wound culture grew staph aureus species Initially he was starting on Dapto and IV zosyn, then IV zosyn was changed to Rocephin He has been on IV dapto and Rocephin Dapto was discontinued today and continue with the Rocephin only Patient plan to go back to [place] on Saturday and would like to be discharge today ID consult to help for antibiotic on discharge and duration case discussed with case management that would not be able to arrange for outpatient IV abx infusion since arrangement will need to make that he can get the abx in [place] Other options might be to transition to PO, then once arrives to [place] that he go to the ER to get admitted that case management can arrange for IV abx infusion if needed Will wait for ID consult to determine abx choice on discharge Continue PT/OT (3) Hyperglycemia: Plan: DM type 2 Most recent hemoglobin A1c 9.8 Continue to hold Metformin hold metformin On Lantus and insulin protocol for optimal glycemic control Pharmacy on board for glycemic management Continue monitor blood sugar Plan: H/O CAD S/p CABG On statin Admission and Anticipated Discharge Date Admission Date: June 19, 2021 Subjective Patient was seen and examined for follow-up of toe amputation Lying in bed with no distress playing in his cellphone Pt said that he would like to be discharge today that he can spend time with Family to go back to [place] Denies any chest pain, palpitation, dizziness, shortness of breath. Physical Exam Physical Exam: General- No acute distress Head- atraumatic Eyes- PERRL, EOMI, ENT- oropharynx clear Neck- supple, no JVD Lungs- clear to auscultation Heart- regular rhythm; no murmur Abdomen- normal bowel sounds, soft, nontender Extremities- no calf tenderness Neuro- alert, oriented x 3; PERRL, EOMI; no facial palsy; no dysarthria Skin- warm & dry Results & Data Results & Data ([facility]) Vital Signs (Past 12 Hours) Vital Signs Temp Pulse Resp BP Pulse Ox 06/23/21 08:01 36.6 C 85 16 102/70 97 (1) Osteomyelitis Laterality: right Osteomyelitis location: foot Osteomyelitis type: unspecified type Qualified Code(s): M86.9 - Osteomyelitis, unspecified
[2021-06-23] MEDS: cefTRIAXone SODIUM 2,000 MG in DEXTROSE 5% 50 ML IV SCH (17:26)
== END 2021-06-23 19:05 | disposition home or self-care (01) | DRG 617 ==
LOC: ED 14:44 → 3W 22:59 → SUATTDRO 22:59 → 3W 23:47
DX: E11.621 Type 2 diabetes mellitus with foot ulcer; E11.65 Type 2 diabetes mellitus with hyperglycemia; E87.1 Hypo-osmolality and hyponatremia; E11.40 Type 2 diabetes mellitus with diabetic neuropathy, unspecified; E78.5 Hyperlipidemia, unspecified; Z79.4 Long term (current) use of insulin; Z95.1 Presence of aortocoronary bypass graft; M86.9 Osteomyelitis, unspecified; E11.69 Type 2 diabetes mellitus with other specified complication